=== PATIENT | male | born 1950 | race Caucasian/White ===

== ENCOUNTER → 2023-12-01 | Outpatient (CLI) | payer MEDICARE, SELFPAY ==
--- NOTE | 2023-12-01 07:15 | CT_ITS ---
CT RIGHT LOWER EXTREMITY WITH 3-D IMAGING CLINICAL INDICATION: RIGHT KNEE [facility] PROTOCOL PRE OP TECHNIQUE: Axial CT images of the right lower extremity (including right hip, right knee, and right ankle) was performed without IV contrast material. Coronal and sagittal reformats were provided. The protocol utilizes one or more of the following dose reduction techniques: automated exposure control, adjustment of mA and/or kV according to patient size, and/or use of iterative reconstruction technique. RADIATION DOSAGE (If Supplied By Facility): CTDIvol = ( 18.76 ) mGy, DLP = ( 1499.18 ) mGycm COMPARISON: No relevant prior comparison study available. FINDINGS: Bones: There is degenerative arthrosis of the right hip joint with joint space narrowing, marginal osteophyte formation, and subchondral cyst formation in the right acetabulum. There is moderate to severe degenerative arthrosis of the medial femorotibial compartment of the right knee, with joint space narrowing, marginal osteophyte formation, and subchondral sclerosis/cyst formation. There is mild degenerative arthrosis of the patellofemoral and lateral femorotibial compartments of the right knee with small marginal osteophyte formation. Unremarkable right ankle. Osseous structures are intact without evidence of fracture or dislocation. No lytic or blastic osseous masses. Soft Tissues: There is a moderate right knee joint effusion. There is a stellate shaped urinary bladder calculus, measuring up to 1.8 cm in diameter. There is mild chronic sigmoid diverticulosis, without acute diverticulitis. The deep soft tissue structures are unremarkable. The superficial soft tissues are unremarkable without evidence of edema, hematoma, or foreign body. 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 Moderate right knee joint effusion. Electronically Signed: Kevin Sandy MD at 9:30 EDT ,
[2023-12-01 08:48] LABS: Absolute Lymphocyte Count 1.35 X10^3/uL (0.83-4.51); Absolute Neutrophil Count 2.9 X10^3/uL (2.0-7.7); Basophil# 0.04 X10^3/uL; Basophil% 0.8 % (0-1); Eosinophil# 0.19 X10^3/uL; Eosinophils% 3.8 % (0-5); Hemoglobin 13.7 g/dL (13.0-16.5); Lymphocyte # 1.35 X10^3/ul (0.83-4.51); Lymphocyte % 26.9 % (19-41); Mean Corp Hgb Conc 32.6 g/dL (32-36); Mean Corpuscular Hgb 31.7 pg (27.0-32.0); Mean Corpuscular Volume 97.2 fL (80-94); Mean Platelet Vol. 9.7 fl (6.2-12.0); Monocyte# 0.53 X10^3/uL; Monocyte% 10.6 % (0-10); NRBC Flagged by Analyzer 0 % (0-5); Neutrophil # 2.89 X10^3/uL (2.7-7.7); Neutrophil % 57.7 % (47-70); Platelet Count 185 K/mm3 (150-450); RBC Distribution Width CV 12.9 % (11.6-14.6); RBC Distribution Width SD 46.3 fl (35.1-43.9); Red Blood Count 4.32 M/mm3 (4.6-6.2)
[2023-12-01 09:07] LABS: Albumin, Serum 3.4 g/dL (3.2-5.0); Anion Gap 7 (5-15); BUN 16 mg/dL (7-18); BUN/Creat Ratio 11.2 RATIO (10-20); Calcium,Total 8.7 mg/dL (8.5-10.1); Chloride 105 mmol/L (98-107); Creatinine, Serum 1.43 mg/dL (0.70-1.30); EST Glomerular Filtration Rate 51 mL/min (>60); Est Glom Filt Rate - Afr Amer 62 mL/min (>60); Glucose 83 mg/dL (74-106); Potassium 4.2 mmol/L (3.5-5.1); Sodium Level 141 mmol/L (136-145)
== END | disposition home or self-care (01) ==
PROVIDERS: PCP Internal Medicine Adolescent Medicine; Referring Provider Specialist; Visit Provider Specialist
DX: M17.11 Unilateral primary osteoarthritis, right knee (principal); M21.161 Varus deformity, not elsewhere classified, right knee; M25.461 Effusion, right knee; G89.29 Other chronic pain; I10 Essential (primary) hypertension; Z79.899 Other long term (current) drug therapy; Z86.16 Personal history of COVID-19
CPT/HCPCS: 36415; 73700; 80048; 82040; 85025; 87081; 93005